=== PATIENT | female | born 1940 | race African-American/Black ===

== ENCOUNTER 2016-09-01 13:16 | Emergency (ER) | payer OTHER ==
--- NOTE | 2016-09-01 14:54 | PROVIDER DOCUMENTATION ---
HPI-General Adult - General Source: patient - History of Present Illness -Gen Adult Nature of Presenting Problems: 75 y/o F presents to ED cc of cough/ body aches x 2-3 months. Pt states she was seen at PCP x 1 month ago and was given a steroid. Pt states early today she had an episode of coughing with CP and felt like she was going to pass out while at work today. Pt does state coughing is worse at night time and has to sleep being elevated. Location of Pain/Injury: reports: none Pain Radiation: reports: no radiation Quality of Pain: reports: none Severity: reports: mild Onset/Duration: reports: just prior to arrival (episode of cough/cp), other (2- 3 months cough) Timing: reports: still present Context/Activities at Onset: reports: light activity Modifying Factors: improves with: nothing Associated Symptoms: reports: cough, other (body aches). denies: chest pain, shortness of breath Similar Symptoms Previously?: No Recently seen or treated by another doctor?: No <Sofia Henderson - Last Filed: 09/01/16 14:47> <Steven Munoz - Last Filed: 09/01/16 16:56> - General Chief Complaint: Flu Symptoms Stated Complaint: FLU LIKE SX Time Seen by Provider: 09/01/16 13:59 Allergies/Adverse Reactions: Patient Allergies Allergy/AdvReac Type Severity Reaction Status Date / Time No Known Allergies Allergy Verified 09/01/16 16:46 Home Medications: Aspirin 81 mg PO DAILY 07/17/12 Clonazepam [Klonopin] 1 mg PO DAILY 07/17/12 Fluticasone/Salmet 100/50 INH [Advair 100/50 Diskus] 1 puff INH RTBID 07/17/12 Hyzaar 50-12.5 mg 1 dose PO QAM 07/17/12 Omeprazole [Prilosec] 20 mg PO DAILY 07/17/12 Levothyroxine [Synthroid] 75 microgm PO DAILY 06/11/15 Methotrexate 2.5 mg PO ORDERED 06/11/15 Pregabalin [Lyrica] 25 mg PO TID 06/15/16 Review of Systems - Adult - REVIEW OF SYSTEMS - ADULT Constitutional: denies: chills, fever 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 denies: palpitations Respiratory: reports: cough. denies: shortness of breath Gastrointestinal: denies: nausea, vomiting Neurological: denies: dizziness/vertigo, headache/migraines <HendersonSofia - Last Filed: 09/01/16 14:47> Past History - Adult - PAST MEDICAL HISTORY-ADULT Review of Records: reports: Old Records Reviewed, Nursing Assessment Review Major Childhood Illnesses: reports: denies history Cardiovascular: reports: HTN Respiratory: reports: denies history Gastrointestinal: reports: denies history Obstetrical/Gynecological: reports: denies history Genitourinary: reports: denies history Musculoskeletal: reports: denies history Neurological: reports: denies history Endocrine/Immune: reports: RA, thyroid disorder Other Conditions: reports: denies history - PRIOR SURGERIES/PROCEDURES Surgical/Procedure History: reports: appendectomy, hernia repair, other (tubal ligation) - PRIOR HOSPITALIZATIONS Prior Hospitalizations: reports: none - IMMUNIZATION STATUS Childhood Immunizations: See Nurse Assessment Flu Vaccine: See Nurse Assessment - FAMILY HISTORY Family History: reviewed, not pertinent - SOCIAL HISTORY Smoking: non-smoker Substance Use: none/never Alcohol Use Frequency: never <Ric Hendersonnee - Last Filed: 09/01/16 14:47> Physical Exam-General - PHYSICAL EXAM-ADULT Initial Vital Signs Reviewed: Yes - CONSTITUTIONAL General Appearance: appears well, alert, no apparent distress - EYES Eyes: PERRL/EOMI, pink conjunctivae - HEAD, EARS, NOSE, MOUTH & THROAT HENMT: normocephalic/atraumatic, moist mucous membranes, normal ENT inspection - NECK Neck: non-tender, full range of motion, normal inspection - RESPIRATORY Respiratory: chest non-tender, lungs clear, normal breath sounds - CARDIOVASCULAR Cardiovascular: normal peripheral pulses, no edema, tachycardia - GASTROINTESTINAL (ABDOMEN) Abdominal Exam: normal bowel sounds, non tender, soft - LYMPHATIC Lymphatic: no adenopathy - MUSCULOSKELETAL Back Exam: normal inspection, no CVA tenderness, no vertebral tenderness Extremity: normal range of motion, non-tender, normal gait - SKIN Integumentary: normal color, normal turgor, warm/dry - NEUROLOGIC Neurologic: grossly normal, no motor/sensory deficits - PSYCHIATRIC Psych/Mental Status: normal mood/affect, normal thought content, normal thought process, oriented x 3 <SantiagoSofia - Last Filed: 09/01/16 14:47> Progress - PLAN OF CARE/RESULTS Progress/Plan/Lab Results: Orders Category Date Time Status CHEST-2 VIEWS [RAD] Stat Exams 09/01/16 14:00 Taken CBC WITH ELECTRONIC DIFF [HEME] Stat Lab 09/01/16 15:40 Completed CK PROFILE [SP CHEM] Stat Lab 09/01/16 15:40 Completed COMPREHENSIVE METABOLIC PANEL [CHEM] Stat Lab 09/01/16 15:40 Completed INFLUENZA SCREEN A/B Stat Lab 09/01/16 13:24 Completed TROPONIN T Stat Lab 09/01/16 15:40 Completed TSH Stat Lab 09/01/16 15:40 Completed UA Reflex [URINALYSIS W/POSS RFLX CULT] [URINALYSIS] Lab 09/01/16 14:00 Uncollected Stat bnp [PRO B-NATRIURETIC PEPTIDE] Stat Lab 09/01/16 15:40 Completed EKG [EKG] Stat Ther 09/01/16 14:01 Draft Laboratory Tests 09/01/16 09/01/16 09/01/16 15:40 15:40 15:40 WBC 10.01 RBC 3.99 L Hgb 12.1 Hct 37.3 MCV 93.5 MCH 30.3 MCHC 32.4 L RDW Std Deviation 13.4 Plt Count 281 MPV 10.1 Immature Gran % (Auto) 0.4 Neut % (Auto) 75.2 Lymph % (Auto) 14.3 L [place] % (Auto) 8.3 Eos % (Auto) 1.6 Baso % (Auto) 0.2 Immature Gran # (Auto) 0.04 Neut # (Auto) 7.53 H Lymph # (Auto) 1.43 [place] # (Auto) 0.83 H Eos # (Auto) 0.16 Baso # (Auto) 0.02 Sodium 137 Potassium 3.7 Chloride 97 L Carbon Dioxide 25 Anion Gap 15 BUN 10 Creatinine 0.7 Estimated GFR/1.73 m2 > 60 BUN/Creatinine Ratio 14 Glucose 121 H Calculated Osmolality 274 Calcium 9.3 Total Bilirubin 0.91 AST 11 ALT 9 L Alkaline Phosphatase 67 Creatine Kinase 41 Troponin T < 0.010 Lqf-N-Mfatxrwhzgg Pept Total Protein 7.2 Albumin 3.7 Globulin 3.5 Albumin/Globulin Ratio 1.1 TSH 09/01/16 09/01/16 15:40 15:40 WBC RBC Hgb Hct MCV MCH MCHC RDW Std Deviation Plt Count MPV Immature Gran % (Auto) Neut % (Auto) Lymph % (Auto) [place] % (Auto) Eos % (Auto) Baso % (Auto) Immature Gran # (Auto) Neut # (Auto) Lymph # (Auto) [place] # (Auto) Eos # (Auto) Baso # (Auto) Sodium Potassium Chloride Carbon Dioxide Anion Gap BUN Creatinine Estimated GFR/1.73 m2 BUN/Creatinine Ratio Glucose Calculated Osmolality Calcium Total Bilirubin AST ALT Alkaline Phosphatase Creatine Kinase Troponin T Ppw-V-Xvdgoqlzwxg Pept 130 Total Protein Albumin Globulin Albumin/Globulin Ratio TSH 2.09 Vital Signs - 24 hr 09/01/16 13:22 Temperature 98.3 F Pulse Rate 116 H Respiratory 20 Rate Blood Pressure 109/77 O2 Sat by Pulse 100 Oximetry - XRAY 1 XRAY Study: Chest Impression: Normal XRAY Interpretation: nad - radiology <Steven Munoz - Last Filed: 09/01/16 16:56> Departure <Sofia Henderson - Last Filed: 09/01/16 14:47> - Departure Time of Disposition Order: 16:54 Certified Medical Emergency: Emergent <Steven Munoz - Last Filed: 09/01/16 16:56> - Departure DIAGNOSIS: URI (upper respiratory infection) Qualifiers: URI type: unspecified URI Qualified Code(s): J06.9 - Acute upper respiratory infection, unspecified Disposition: HOME 01 Condition: Stable Additional Instructions: ED Follow Up Instructions: You have been treated by a care provider in the Emergency Department. These instructions are being provided to you so you can have an understanding of how to care for yourself upon discharge. Upon discharge from the Emergency Department, you are responsible for making arrangements for follow-up care by a physician of your choice. Take all prescribed medications as directed. Return to the Emergency Department immediately for any new or worsening symptoms. You may call the Physician Referral phone number at [phone] to obtain a list of Physicians who are taking new patients. Prescriptions: Methylprednisolone [Medrol Dosepak] 4 mg PO DIRECTED #1 package Azithromycin [Zithromax Z-Troy] 250 mg PO DIRECTED #1 pkg Referrals: Qamar Ibarra MD [Primary Care Provider] - Call for Appoint. -1 week Attestation - Scribe Verification/Attestation Scribe:: Sofia Henderson Acting as Scribe for:: Steve Stack Scribe documention review:: This chart was documented by a scribe and accurately reflects the service the provider performed and the decisions made by the provider. <Sofia Henderson - Last Filed: 09/01/16 14:47> Physician Attestation
--- NOTE | 2016-09-01 15:22 | ED EKG INTERP ---
EKG Interpretation - EKG Time of EKG reading by physician:: 14:52 EKG Read and Signed by:: Steve Stack EKG Interpretation (*Must complete 3 of following elements*): Normal Rate: 86 Rhythm: NSR [place]: normal QRS: LVH MT Interval: normal ST Wave: normal
--- NOTE | 2016-09-01 15:32 | EKG Report ---
Test Performed on : 09/01/2016 2:52:00 PM Test Reason : cough, tachycardia Blood Pressure : / mmHG Vent. Rate : 086 BPM Atrial Rate : 086 BPM P-R Int : 122 ms QRS Dur : 068 ms QT Int : 364 ms P-R-T Axes : 032 -13 027 degrees QTc Int : 435 ms Normal sinus rhythm. Voltage criteria for left ventricular hypertrophy Abnormal ECG When compared with ECG of 03-JUL-2013 22:15, (Unconfirmed) Sinus rhythm. has replaced Atrial flutter. Nonspecific T wave abnormality no longer evident in Anterior leads Unconfirmed Result
[2016-09-01 15:53] LABS: MANUAL DIFF NEEDED? NO
[2016-09-01 15:55] LABS: BASO% 0.2 % (0.0-0.8); EOS# 0.16 X1000 (0.0-0.7); EOS% 1.6 % (0.0-10.0); HEMATOCRIT 37.3 % (37.0-47.0); HEMOGLOBIN 12.1 g/dL (12.0-16.0); IMM GRAN# 0.04 X1000 (0.0-0.04); IMM GRAN% 0.4 % (0.0-0.5); LYMPH# 1.43 X1000 (1.2-3.4); LYMPH% 14.3 % (20.5-51.1); MCH 30.3 PG (27-31); MCHC 32.4 g/dL (33-37); MCV 93.5 FL (81-99); MONO# 0.83 X1000 (0.11-0.59); MONO% 8.3 % (1.7-9.3); MPV 10.1 FL (7.4-10.4); NEUT% 75.2 % (42.2-75.2); PLT 281 X1000 (130-400); RBC 3.99 XMIL (4.2-5.4)
[2016-09-01 16:21] LABS: AGAP 15; ALBUMIN 3.7 g/dL (3.5-5.0); ALKALINE PHOSPHATASE 67 U/L (32-104); BUN 10 mg/dL (8-22); CALCIUM 9.3 mg/dL (8.8-10.2); CHLORIDE 97 mmol/L (98-107); CK PROFILE 41 U/L (24-173); COSMO 274; GOT 11 U/L (10-30); GPT 9 U/L (10-36); POTASSIUM 3.7 mmol/L (3.5-5.1); SODIUM 137 mmol/L (136-145); TCO2 25 mmol/L (25-35); TOTAL BILIRUBIN 0.91 mg/dL (0.20-1.00); TOTAL PROTEIN 7.2 g/dL (6.3-8.3)
--- NOTE | 2016-09-01 16:56 | Diag Imaging Result Document ---
PROCEDURE NAME: CHEST-2 VIEWS - 09/01/2016 CHEST 2 VIEWS: COMPARISON: Compared with 03/01/2016. FINDINGS: Heart size is normal. There are small right mid lung granuloma and calcified right hilar and mediastinal lymph nodes which are stable and consistent with old granulomatous disease. The lungs otherwise appear clear. There is no consolidation, pleural effusion, or pneumothorax identified. There is some tortuosity of the thoracic aorta similar to the previous exam. There is thoracic spondylosis noted. IMPRESSION: No evidence of acute disease.
[2016-09-01 17:05] LABS: URINE MICRO REVIEW NEEDED? NO; URINE SOURCE CLEAN CATCH
[2016-09-01 17:11] LABS: BILIRUBIN URINE NEGATIVE (NEGATIVE); BLOOD URINE NEGATIVE (NEGATIVE); COLOR YELLOW; GLUCOSE URINE NEGATIVE (NEGATIVE); LEUKOCYTES URINE TRACE (NEGATIVE); NITRITE URINE NEGATIVE (NEGATIVE); PH URINE 6.5; PROTEIN URINE NEGATIVE (NEGATIVE); SP GRAVITY URINE 1.007; TURBIDITY URINE CLEAR (CLEAR); UROBILINOGEN URINE NORMAL (NORMAL)
[2016-09-01 17:12] LABS: UR EPITHELIAL CELLS <10 /HPF (<10); URINE BACTERIA NEGATIVE /HPF; URINE CULTURE NEEDED? YES; URINE RBC <10 /HPF (<10); URINE WBC <10 /HPF (<10)
[2016-09-01] MEDS ORDERED: ULTRAM PO ONE (18:19)
[2016-09-01 18:24] VITALS: BP 136/64
== END 2016-09-01 18:23 | disposition home or self-care (01) ==
LOC: ED 13:16
DX: J06.9 Acute upper respiratory infection, unspecified (principal); R05 Cough; R07.9 Chest pain, unspecified; I10 Essential (primary) hypertension; Z79.82 Long term (current) use of aspirin; M06.9 Rheumatoid arthritis, unspecified; E07.9 Disorder of thyroid, unspecified; Z79.899 Other long term (current) drug therapy; Z79.51 Long term (current) use of inhaled steroids
CPT/HCPCS: 36415; 71020; 80053; 81001; 82550; 83880; 84443; 84484; 85025; 87088; 87804; 93005; 99284

== ENCOUNTER 2019-03-22 10:15 | Inpatient (IN) ==
[2019-03-22] MEDS: SOLU-MEDROL IV SCH (11:46)
[2019-03-22] MEDS: ROCEPHIN 1 GM in NS 50 ML IV SCH (11:46)
[2019-03-22 11:49] LABS: BASO# 0.02 X1000 (0.0-0.2); BASO% 0.1 % (0.0-0.8); EOS# 0.02 X1000 (0.0-0.7); EOS% 0.1 % (0.0-10.0); HEMATOCRIT 39.2 % (37.0-47.0); HEMOGLOBIN 12.7 g/dL (12.0-16.0); IMM GRAN# 0.08 X1000 (0.0-0.04); IMM GRAN% 0.5 % (0.0-0.5); LYMPH# 2.47 X1000 (1.2-3.4); LYMPH% 15.2 % (20.5-51.1); MCH 28.9 PG (27-31); MCHC 32.4 g/dL (33-37); MCV 89.3 FL (81-99); MONO# 0.78 X1000 (0.11-0.59); MONO% 4.8 % (1.7-9.3); MPV 10.2 FL (7.4-10.4); NEUT# 12.85 X1000 (1.4-6.5); NEUT% 79.3 % (42.2-75.2); PLT 339 X1000 (130-400); RBC 4.39 XMIL (4.2-5.4); RDW 13.9 % (11.5-14.5); WBC 16.22 X1000 (4.8-10.8)
[2019-03-22 12:13] LABS: AGAP 14; ALBUMIN 3.8 g/dL (3.5-5.0); ALKALINE PHOSPHATASE 90 U/L (32-104); BUN 10 mg/dL (8-22); CALCIUM 9.4 mg/dL (8.8-10.2); CHLORIDE 101 mmol/L (98-107); COSMO 283; CREATININE 0.6 mg/dL (0.5-0.9); ESTIMATED GFR > 60; GLUCOSE 183 mg/dL (70-104); GOT 7 U/L (10-30); GPT 6 U/L (10-36); POTASSIUM 3.8 mmol/L (3.5-5.1); SODIUM 140 mmol/L (136-145); TCO2 25 mmol/L (25-35); TOTAL BILIRUBIN 0.54 mg/dL (0.20-1.00); TOTAL PROTEIN 7.5 g/dL (6.3-8.3)
[2019-03-22] MEDS: ZITHROMAX 500 MG/NS 500 MG/250 ML IVPB IV SCH (12:32)
[2019-03-22 12:55] LABS: SED RATE 65 mm/hr (0-20)
[2019-03-22] MEDS: NEXIUM IV SCH (18:59)
[2019-03-22] MEDS: LOVENOX SUBQ SCH (18:59)
[2019-03-22] MEDS: SODIUM CHLORIDE 0.9% INJ SCH (18:59)
[2019-03-22] MEDS: ADVAIR 100/50 DISKUS INH SCH (20:05)
[2019-03-22] MEDS: KLONOPIN PO SCH (20:59)
--- NOTE | 2019-03-23 05:10 | HISTORY AND PHYSICAL ---
CHIEF COMPLAINT: Shortness of breath, cough, wheezing, right-sided chest pain for the last 2 weeks. HISTORY OF PRESENT ILLNESS: She is a 78-year-old female, has been having right- sided chest pain, cough for the last 2 weeks. The patient was treated as an outpatient. In fact, patient was seen in the emergency room on 03/03/2019. During [place] ER visit, patient had a CT of the chest done. It showed very subtle tree-in-bud opacities in the right lower lobe, right middle lobe with bronchiolitis. She also has a focal ill-defined opacity in the anterior left upper lobe. She has a history of rheumatoid arthritis, poorly controlled, under the care of different rheumatologists. The patient was given outpatient treatment with bronchodilators and prednisone, Zithromax. She is also on methotrexate. The patient fails to improve and came in yesterday to my office. She has some wheezing. Radiological findings discussed, this could be Mycobacterium avium intracellular. Nevertheless, patient had a nonproductive cough. No swelling of feet. She was sent home on antibiotics continuation and she wanted to see Dr. Whitlock as an outpatient. In the meantime, she fails to improve, called the office today that she is not getting any better. Admitted to the hospital with aggressive bronchial toilet, IV antibiotics, IV steroids. As a result, a hospital admission was warranted. PAST MEDICAL HISTORY: COPD, carpal tunnel syndrome, interstitial cystitis, type 2 diabetes, hypertension, hypothyroidism, rheumatoid arthritis, varicose veins in both extremities. PAST SURGICAL HISTORY: Appendectomy, tubal ligation. MEDICATIONS: Advair 250/50 one puff b.i.d., Klonopin 1 mg once daily, folic acid 1 mg daily, Hyzaar 50/12.5 daily, Lyrica 25 daily, metformin 500 p.o. b.i.d., methotrexate 2.5 mg, 3 tablets once a week, every Monday, Prilosec 20 daily, Os-Lennox with vitamin D 1 tablet p.o. b.i.d., prednisone 10 mg daily, Synthroid 75 mcg daily, Ultracet 1 tablet 3 times daily, Ventolin as needed, vitamin D 50,000 once a week. ALLERGIES: Not known. SOCIAL HISTORY: She is , 2 kids. 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 No smoking. No drug abuse. No alcohol. FAMILY HISTORY: Father at the age of 88 from heart attack. Mom of liver problems at 84. HEALTH MAINTENANCE: Influenza vaccine was refused. Pneumococcal vaccine 2011. [employer] by Dr. Colon. Colonoscopy 11/[address] Cadet. REVIEW OF SYSTEMS: HEENT: No headache, no vision problem. No earache. No sore throat. Neck: No neck pain. No goiter. No lymphadenopathy. Cardiopulmonary: Right-sided chest pain, shortness of breath, cough, and wheezing. Gastrointestinal: No nausea, vomiting, abdominal pain. Genitourinary: No history of hesitancy, frequency, dysuria. Extremities: Joint pains from rheumatoid arthritis. No swelling of legs. Neurologic: No focal symptoms or weakness. PHYSICAL EXAMINATION: VITAL SIGNS: Temperature is 98 degrees, tachycardic, edema. Vitals are stable. Blood pressure 160/70. HEENT: Atraumatic, normocephalic. Pupils equal, react to light. TMs are normal. Nose and throat congested. NECK: Supple. No lymphadenopathy. JVD is normal. CHEST: Bilateral wheezing, more on the right side. CARDIOVASCULAR: Distant heart sounds. ABDOMEN: Belly is soft, obese, nontender. Good bowel sounds. EXTREMITIES: No peripheral edema, cyanosis. Mild active synovitis noted in the joints. NEUROLOGIC: No neurological deficits. INVESTIGATIONS: White cell count 16, hematocrit 39, platelets 339,000. Sedimentation rate was 65. Sodium 140, potassium 3.8, chloride 101, BUN 10, creatinine 0.6. Glucose 183. Liver function tests were normal. CT chest findings on 03/03/2019 as discussed. Sinus x-rays no air-fluid levels identified. Cervical spine degenerative arthropathy noted. Chest x-ray negative on 03/03. ASSESSMENT AND PLAN: 1. A 78-year-old female admitted to the hospital with underlying rheumatoid arthritis, diabetes, immunocompromised on methotrexate and prednisone, came in with acute COPD/asthma exacerbation with possible KENDALL infection, not able to improve for the last 2 weeks, elevation of sedimentation rate. Plan is oxygen as needed, bronchodilators, IV steroids, IV Zithromax, and Rocephin. 2. Deep venous thrombosis and gastrointestinal prophylaxis with Lovenox and Nexium, respectively. 3. Hypothyroidism, on Synthroid. 4. Hypertension, on Hyzaar. 5. Rheumatoid arthritis. Hold on methotrexate. 6. Vitamin D replacement and insulin with sliding scale with insulin coverage. 7. Reconcile home medicines. 8. Follow up and initiate vaccination protocol prior to the discharge. cc: Cornell Ibarra MD
[2019-03-23] MEDS: NEXIUM IV SCH ×2 (05:47→17:37)
[2019-03-23] MEDS: SODIUM CHLORIDE 0.9% INJ SCH (05:47)
[2019-03-23] MEDS: HUMULIN R SUBQ SCH ×5 (05:51→20:25)
[2019-03-23] MEDS: SYNTHROID PO SCH (06:35)
[2019-03-23] MEDS: ADVAIR 100/50 DISKUS INH SCH ×2 (07:33→19:14)
--- NOTE | 2019-03-23 08:34 | EKG Report ---
Test Performed on : 03/23/2019 06:16:05 AM Test Reason : cp Blood Pressure : / mmHG Vent. Rate : 071 BPM Atrial Rate : 071 BPM P-R Int : 126 ms QRS Dur : 080 ms QT Int : 416 ms P-R-T Axes : 042 -10 015 degrees QTc Int : 452 ms Normal sinus rhythm. Voltage criteria for left ventricular hypertrophy Abnormal ECG When compared with ECG of 01-SEP-2016 14:52, No significant change was found Confirmed by Gertrudis Lee MD ([id number]) on 03/25/2019 4:10:25 PM
[2019-03-23] MEDS ORDERED: KLONOPIN PO SCH (09:00)
[2019-03-23] MEDS: CALTRATE 600 + D PO SCH (09:37)
[2019-03-23] MEDS: VITAMIN D PO SCH (09:37)
[2019-03-23] MEDS: HYZAAR 50/12.5 MG PO SCH (09:37)
[2019-03-23] MEDS: SOLU-MEDROL IV SCH (09:37)
--- NOTE | 2019-03-23 13:09 | Diag Imaging Result Doc PS360 ---
EXAM: CHEST-2 VIEWS HISTORY: hypoxia TECHNIQUE: Chest two views COMPARISON: 03/03/2019 FINDINGS: The lungs are well expanded. The heart is not enlarged. The vessels are not distended. There are no infiltrates. No pleural effusions. There are calcified mediastinal and hilar lymph nodes with scattered granuloma. IMPRESSION: No acute abnormality. Electronically signed by Gabriel Escalante 03/23/2019 1:07 PM
[2019-03-23] MEDS: ZITHROMAX 500 MG/NS 500 MG/250 ML IVPB IV SCH (14:25)
[2019-03-23] MEDS: ROCEPHIN 1 GM in NS 50 ML IV SCH (14:29)
[2019-03-23] MEDS: LOVENOX SUBQ SCH (17:35)
--- NOTE | 2019-03-23 19:35 | PROGRESS NOTE ---
DATE: 03/23/2019 The patient is doing a little better. Decreased cough and chest pain and wheezing. Interval history was reviewed. EXAM: Temp is 98 degrees, pulse 76, blood pressure 140/64.HEENT: Within normal limits. Neck: Supple, no lymphadenopathy. Chest: Bilateral air entry. Heart: Sounds are regular. Belly: Is soft, nontender. Good bowel sounds. No masses palpable. INVESTIGATIONS: EKG is unremarkable. Chest x-ray was stable. LABS: CK is normal. Troponin was normal. ProBNP 600. A1c 8.0. ASSESSMENT AND PLAN: 1. Acute chronic obstructive pulmonary disease exacerbation with possible KENDALL. Continue on IV antibiotics with Zithromax and ceftriaxone IV steroids. 2. Other problems are stable DVT. GI prophylaxis as per order sheet. 3. Type 2 diabetes. A1c 8.0 worsening with steroids. I am going to change the diet to diabetic diet. Also start on metformin and will follow up insulin with sliding coverage. LEVEL OF DOCUMENTATION: 25 minutes. cc: Cornell Ibarra MD
[2019-03-23] MEDS: KLONOPIN PO SCH (20:24)
[2019-03-24] MEDS: SODIUM CHLORIDE 0.9% INJ SCH (06:07)
[2019-03-24] MEDS: NEXIUM IV SCH ×2 (06:07→18:46)
[2019-03-24] MEDS: SYNTHROID PO SCH (06:08)
[2019-03-24] MEDS: HUMULIN R SUBQ SCH ×4 (06:10→20:40)
[2019-03-24] MEDS: ADVAIR 100/50 DISKUS INH SCH ×2 (07:43→19:27)
[2019-03-24] MEDS: SOLU-MEDROL IV SCH (08:32)
[2019-03-24] MEDS: CALTRATE 600 + D PO SCH (08:32)
[2019-03-24] MEDS: GLUCOPHAGE PO SCH ×2 (08:32→17:54)
[2019-03-24] MEDS: HYZAAR 50/12.5 MG PO SCH (08:32)
[2019-03-24] MEDS: VITAMIN D PO SCH (08:32)
[2019-03-24] MEDS: ROCEPHIN 1 GM in NS 50 ML IV SCH (12:30)
[2019-03-24] MEDS: ZITHROMAX 500 MG/NS 500 MG/250 ML IVPB IV SCH (12:30)
--- NOTE | 2019-03-24 17:46 | PROGRESS NOTE ---
DATE: 03/24/2019 SUBJECT: The patient is doing better. Decreased cough and shortness of breath. No chest pain. EXAMINATION: Vitals: Temperature is 97 degrees, pulse 88, blood pressure stable. HEENT: Within normal limits. Neck: Supple. No lymphadenopathy. Chest: Bilateral air entry. Heart: Sounds are regular. Belly: Soft, obese, nontender. No active synovitis noted. No obvious neurological deficits. INVESTIGATIONS: Blood sugars running around 300. ASSESSMENT AND PLAN: 1. Acute chronic obstructive pulmonary disease exacerbation with possible mycobacterium avium intracellulare based on CT clinically is less likely. Continue IV antibiotics with Zithromax, desmond decrease IV steroids. 2. Deep venous thrombosis, gastrointestinal prophylaxis as per order sheet. 3. Type 2 diabetes and started on metformin along with diet with insulin sliding coverage and continues to improve. 4. Atypical chest pain. EKG is negative. Cardiac enzymes are negative. Findings reassuring and will follow up. LEVEL OF DOCUMENTATION: 25 minutes. cc: Cornell Ibarra MD MTDD
[2019-03-24] MEDS: LOVENOX SUBQ SCH (17:54)
[2019-03-24] MEDS: KLONOPIN PO SCH (20:40)
[2019-03-25] MEDS: HUMULIN R SUBQ SCH ×4 (06:14→21:01)
[2019-03-25] MEDS: SODIUM CHLORIDE 0.9% INJ SCH (06:38)
[2019-03-25] MEDS: SYNTHROID PO SCH (06:38)
[2019-03-25] MEDS: NEXIUM IV SCH ×2 (06:38→18:26)
[2019-03-25] MEDS: ADVAIR 100/50 DISKUS INH SCH ×2 (07:52→19:33)
[2019-03-25] MEDS: GLUCOPHAGE PO SCH ×2 (08:12→18:26)
[2019-03-25] MEDS: HYZAAR 50/12.5 MG PO SCH (08:12)
[2019-03-25] MEDS: CALTRATE 600 + D PO SCH (08:12)
[2019-03-25] MEDS: SOLU-MEDROL IV SCH (08:12)
[2019-03-25] MEDS: VITAMIN D PO SCH (08:12)
[2019-03-25] MEDS: ZITHROMAX 500 MG/NS 500 MG/250 ML IVPB IV SCH (11:44)
[2019-03-25] MEDS: ROCEPHIN 1 GM in NS 50 ML IV SCH (11:45)
[2019-03-25] MEDS: LOVENOX SUBQ SCH (18:25)
[2019-03-25] MEDS: KLONOPIN PO SCH (20:35)
--- NOTE | 2019-03-25 21:44 | PROGRESS NOTE ---
DATE: 03/25/2019 SUBJECTIVE: The patient complains of little bit cough and wheezing on the right side. Otherwise, overall symptoms are slowly improving. OBJECTIVE: Vital signs: Temperature is 98, pulse 79, blood pressure is stable. HEENT: Within normal limits. Neck: Supple. No lymphadenopathy. No goiter. Chest: Bilateral air entry. Heart: Sounds are regular. Abdomen: Belly is soft, nontender. Good bowel sounds. Neurologic: No obvious deficits noted. LABORATORY DATA: Blood sugars are running high a little bit high. CT scan reviewed questionable tree-in-bud appearance. ASSESSMENT AND PLAN: 1. Acute chronic obstructive pulmonary disease exacerbation. Continue on Zithromax, ceftriaxone, IV steroids. 2. Rheumatoid arthritis. Elevated CRP and sedimentation rate. Continue on IV steroids and under the care of auto wrecker. 3. History of chronic obstructive pulmonary disease on Advair, type 2 diabetes on insulin with sliding protocol along with metformin. 4. Chronic anxiety on Klonopin. 5. Continue on calcium and vitamin D. 6. Deep vein thrombosis and gastrointestinal prophylaxis as per order sheet. 7. Hypertension stable and will follow up. LEVEL OF DOCUMENTATION: 25 minutes. cc: Cornell Ibarra MD
[2019-03-26] MEDS: NEXIUM IV SCH (05:15)
[2019-03-26] MEDS: SYNTHROID PO SCH ×2 (05:15→06:44)
[2019-03-26] MEDS: HUMULIN R SUBQ SCH ×4 (06:21→21:06)
[2019-03-26] MEDS: ADVAIR 100/50 DISKUS INH SCH ×2 (07:34→19:39)
[2019-03-26] MEDS: VITAMIN D PO SCH (09:39)
[2019-03-26] MEDS: SOLU-MEDROL IV SCH (09:39)
[2019-03-26] MEDS: CALTRATE 600 + D PO SCH (09:40)
[2019-03-26] MEDS: HYZAAR 50/12.5 MG PO SCH (09:40)
[2019-03-26] MEDS: GLUCOPHAGE PO SCH ×2 (09:40→17:32)
[2019-03-26] MEDS: ZITHROMAX 500 MG/NS 500 MG/250 ML IVPB IV SCH (11:16)
[2019-03-26] MEDS: ROCEPHIN 1 GM in NS 50 ML IV SCH (11:17)
[2019-03-26] MEDS: PROTONIX IV SCH (18:25)
[2019-03-26] MEDS: SODIUM CHLORIDE 0.9% INJ SCH (18:26)
[2019-03-26] MEDS: LOVENOX SUBQ SCH (18:26)
[2019-03-26] MEDS: KLONOPIN PO SCH (21:06)
--- NOTE | 2019-03-26 21:44 | PROGRESS NOTE ---
DATE: 03/26/2019 SUBJECTIVE: The patient is getting better. She is ambulating well. Decreased cough, wheezing. COPD wheezing is much improved. Nonproductive cough. REVIEW OF SYSTEMS: None reported. No chest pain. PHYSICAL EXAMINATION: Vital Signs: Temperature is 98.4 degrees, pulse 97, blood pressure is 142/57. HEENT: Within normal limits. Neck: Supple. No lymphadenopathy. Chest: Bilateral air entry. Heart: Sounds regular. Diffuse wheezing. Neurologic: No obvious deficits noted. INVESTIGATIONS: None reported. Blood sugars running still in 200s. ASSESSMENT AND PLAN: 1. Acute chronic obstructive pulmonary disease exacerbation, improving well, intravenous ceftriaxone and Zithromax. 2. Type 2 diabetes, on metformin. Decrease Solu-Medrol to 40 mg daily. Will repeat the labs in the morning. 3. Deep venous thrombosis and gastrointestinal prophylaxis, as per order sheet. 4. Rheumatoid arthritis, stable. 5. If he is stable, will discharge in the morning. LEVEL OF DOCUMENTATION: 25 minutes. cc: Cornell Ibarra MD
[2019-03-27] MEDS: PROTONIX IV SCH (06:35)
[2019-03-27] MEDS: SODIUM CHLORIDE 0.9% INJ SCH (06:35)
[2019-03-27] MEDS: SYNTHROID PO SCH (06:35)
[2019-03-27 07:23] LABS: BASO# 0.02 X1000 (0.0-0.2); BASO% 0.1 % (0.0-0.8); EOS# 0.07 X1000 (0.0-0.7); EOS% 0.4 % (0.0-10.0); HEMATOCRIT 42.3 % (37.0-47.0); HEMOGLOBIN 13.3 g/dL (12.0-16.0); IMM GRAN# 0.18 X1000 (0.0-0.04); LYMPH# 4.92 X1000 (1.2-3.4); LYMPH% 26.1 % (20.5-51.1); MCH 28.7 PG (27-31); MCHC 31.4 g/dL (33-37); MCV 91.4 FL (81-99); MONO% 6.9 % (1.7-9.3); MPV 10.8 FL (7.4-10.4); NEUT# 12.39 X1000 (1.4-6.5); NEUT% 65.5 % (42.2-75.2); PLT 285 X1000 (130-400); RBC 4.63 XMIL (4.2-5.4); RDW 14.7 % (11.5-14.5); WBC 18.88 X1000 (4.8-10.8)
[2019-03-27 07:35] LABS: AGAP 14; BUN 15 mg/dL (8-22); C REACTIVE PROT QUANT 3.28 mg/L (0.00-5.00); CALCIUM 9.3 mg/dL (8.8-10.2); CHLORIDE 101 mmol/L (98-107); COSMO 286; CREATININE 0.6 mg/dL (0.5-0.9); ESTIMATED GFR > 60; GLUCOSE 100 mg/dL (70-104); POTASSIUM 3.8 mmol/L (3.5-5.1); SODIUM 143 mmol/L (136-145); TCO2 28 mmol/L (25-35)
[2019-03-27] MEDS: HUMULIN R SUBQ SCH (07:48)
[2019-03-27] MEDS ORDERED: PREVNAR 13 IM ONE (08:23)
[2019-03-27 08:33] LABS: SED RATE 26 mm/hr (0-20)
[2019-03-27 08:48] VITALS: BP 136/57
[2019-03-27] MEDS ORDERED: SOLU-MEDROL IV SCH (09:00)
[2019-03-27] MEDS: ADVAIR 100/50 DISKUS INH SCH (09:05)
[2019-03-27] MEDS ORDERED: PNEUMOVAX 23 IM ONE (09:10)
[2019-03-27] MEDS: HYZAAR 50/12.5 MG PO SCH (09:20)
[2019-03-27] MEDS: CALTRATE 600 + D PO SCH (09:20)
[2019-03-27] MEDS: VITAMIN D PO SCH (09:20)
[2019-03-27] MEDS: GLUCOPHAGE PO SCH (09:21)
--- NOTE | 2019-03-28 09:52 | DISCHARGE SUMMARY ---
ADMISSION DATE: 03/22/2019 DISCHARGE DATE: 03/27/2019 DISCHARGING DIAGNOSES: Acute chronic obstructive pulmonary disease exacerbation, questionable KENDALL. SECONDARY DIAGNOSES: 1. Rheumatoid arthritis. 2. Interstitial cystitis. 3. Type 2 diabetes. 4. Hypertension. 5. Hypothyroidism. 6. Varicose veins in both extremities. BRIEF HISTORY: Please see the H and P that was done on 03/22/2019. In brief, she is a 78-year- old female with above problems, under immunosuppressive treatment for rheumatoid arthritis, presented for the last 2 weeks with cough, shortness of breath, wheezing, seen several times in the offices and emergency room. CT chest showed questionable tree-in-bud right middle lobe and upper lobe lesions. She has a nonproductive cough. Not able to ambulate. She denies any chest pain, PND, orthopnea. HOSPITAL COURSE: For the part of the chest pain, EKG was negative. Cardiac enzymes were negative. Chest x-ray was stable. The patient was given IV steroids, followed by IV Rocephin and Zithromax. The patient has increased inflammatory markers, sedimentation rate and CRP. Followup, there are coming back to normal. Blood sugars were running high. Started on metformin 500 p.o. b.i.d., since the A1c 8.0. Patient is much improved at the time of discharge. LABORATORY DATA: White cell count 18, hematocrit 42, platelets 285,000. Sodium 143, potassium 3.8, chloride 101, BUN 15, creatinine 0.6, calcium 9.3. Cardiac enzymes were normal. ProBNP 644. Sedimentation rate came back 26. CRP 3.28. A1c 8.0. Chest x-ray was stable. DISCHARGE INSTRUCTIONS: 1. Pneumococcal vaccine 13 on 03/27/2019. 2. Prilosec 20 mg daily. 3. Hyzaar 50/12.5 in the morning. 4. Klonopin 1 mg at bedtime. 5. Synthroid 75 mcg daily. 6. Methotrexate 2.5 mg 3 tablets once a week as per director plans. 7. Prednisone 10 mg daily. 8. Calcium with vitamin D 1 tablet p.o. b.i.d. 9. Metformin 500 p.o. b.i.d. 10. Zithromax 7 days. 11. Advair 100/50 one puff b.i.d. 12. Nebulizers as needed. FOLLOWUP: Follow up with director plans with Dr. Grimm, as well as in my office. cc: Cornell Ibarra MD
== END 2019-03-27 09:55 | disposition home or self-care (01) | DRG 191 ==
LOC: DIRADM 10:15 → 3N 10:29
PROVIDERS: ADMIT Internal Medicine; ATTEND Internal Medicine